=== PATIENT | female | born 1975 | race African-American/Black ===

== ENCOUNTER 2016-08-02 11:03 | Emergency (ER) | payer OTHER ==
[~2016-08-02] VITALS: Ht 165.1 cm; Wt 54.4 kg
[2016-08-02 11:06] VITALS: BP 140/80
[2016-08-02] MEDS ORDERED: Bacitracin Oint UD TOPIC ONE ×2 (11:11→11:15)
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
[2016-08-02] MEDS ORDERED: BACITRACIN ZIN1 EACH TOPIC (11:21)
[2016-08-02 11:55] VITALS: BP 140/80
== END 2016-08-02 12:00 | disposition home or self-care (01) ==
LOC: EDBD 11:03 → EMR 11:29
DX: S31.000A Unspecified open wound of lower back and pelvis without penetration into retroperitoneum, initial encounter (principal); V89.2XXA Person injured in unspecified motor-vehicle accident, traffic, initial encounter
CPT/HCPCS: 99283

== ENCOUNTER 2019-09-23 14:17 | Emergency (ER) | payer MEDICARE, OTHER ==
[~2019-09-23] VITALS: Ht 167.6 cm; Wt 74.8 kg
[~2019-09-23 14:17] MED LIST: BACITRACIN ZIN1 EACH TOPIC
--- NOTE | 2019-09-23 14:40 | NUR ---
ED Nurse Note: Patient BIBA to ED d/t left lower extremity 8/10 aching pain and swelling x 3 months. Patient states she was seen at [facility] previously but leg pain persists. Patient AxO x 4, no s/s of acute distress.
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
--- NOTE | 2019-09-23 14:50 | NUR ---
ED Nurse Note: Blood collected and sent to lab.
--- NOTE | 2019-09-23 15:00 | NUR ---
ED Nurse Note: US at bedside
[2019-09-23 15:22] LABS: HEMATOCRIT 38.5 % (37.0-47.0); HEMOGLOBIN 12.5 G/DL (12.0-16.0); MEAN CORPUSCULAR VOLUME 91 FL (80-99); PLATELET COUNT 276 K/UL (150-450); RED BLOOD COUNT 4.23 M/UL (4.20-5.40); WHITE BLOOD COUNT 6.2 K/UL (4.8-10.8)
[2019-09-23 15:31] LABS: ANION GAP 7 mmol/L (5-15); BLOOD UREA NITROGEN 13 mg/dL (7-18); CALCIUM 8.8 MG/DL (8.5-10.1); CARBON DIOXIDE 32 MMOL/L (21-32); CHLORIDE 102 MMOL/L (98-107); CREATININE 0.8 MG/DL (0.55-1.30); POTASSIUM 3.3 MMOL/L (3.5-5.1); SODIUM 141 MMOL/L (136-145)
[2019-09-23 15:37] LABS: ALANINE AMINOTRANSFERASE 16 U/L (12-78); ALBUMIN 4.3 G/DL (3.4-5.0); ALKALINE PHOSPHATASE 133 U/L (46-116); ASPARTATE AMINO TRANSFERASE 18 U/L (15-37); BILIRUBIN,TOTAL 0.4 MG/DL (0.2-1.0)
--- NOTE | 2019-09-23 16:00 | Diagnostic Imaging Report ---
Indication: Left lower extremity edema, swelling, and pain Technique: Grayscale and duplex images of the left lower extremity veins Comparison: None Findings: On the left, grayscale and duplex images demonstrate no evidence of intraluminal thrombus. Normal phasic Doppler waveforms, demonstrating normal augmentation response and no evidence of valvular insufficiency. Greater saphenous vein(s) and tibial veins are patent. Normal compressibility. There is edema of the subcutaneous fat Impression: Negative for evidence of lower extremity deep venous thrombosis on the left
[2019-09-23] MEDS ORDERED: IBUPROFEN600 M1 ORAL (16:38)
[2019-09-23 17:10] VITALS: BP 138/79
--- NOTE | 2019-09-23 17:10 | NUR ---
ER DISCHARGE NOTE: Patient is cleared to be discharged per Dr. Craig, pt is aox4, on room air, with stable vital signs. pt was given dc and prescription instructions, pt was able to verbalize understanding, ID band removed. pt is able to ambulate with steady gait. pt took all belongings.
== END 2019-09-23 17:10 | disposition home or self-care (01) ==
LOC: EDBD 14:17 → EMR 14:50
DX: R60.0 Localized edema (principal); E16.2 Hypoglycemia, unspecified
CPT/HCPCS: 36415; 80053; 85007; 85025; 85610; 85730; 93971; 99284

== ENCOUNTER → 2019-11-11 | Emergency (ER) | payer MEDICARE, OTHER ==
[~2019-11-11] MED LIST changes: +CEPHALEXIN500 MG ORAL; +IBUPROFEN600 M1 ORAL; +Morphine Sulfate 4mg/ml Inj (IV USE ONLY) ONE
--- NOTE | 2019-11-11 19:03 | NUR ---
ED Nurse Note: Recieved report from LEN Hartley. Patient sleeping in bed, no acute distress noted.
[2019-11-11 19:54] VITALS: BP 115/79
--- NOTE | 2019-11-11 19:54 | Emergency Room Report ---
History of Present Illness General Chief Complaint: Dysuria Source: Patient Present Illness HPI 44-year-old female history of homelessness, paraplegia wheelchair dependent history of dysuria times a few days chronic left leg pain, no aggravating relieving factors severity is mild, constant patient has any fevers or chills patient presents for evaluation and treatment is also reported that patient may have fallen out of her wheelchair prior to arrival, patient presents via EMS for evaluation and treatment. Allergies: Coded Allergies: No Known Allergies (Unverified , 08/02/16) COVID-19 Screening Contact w/high risk pt: No Experienced COVID-19 symptoms?: No Patient History Past Medical History: see triage record Nursing Documentation-H Hx Cardiac Problems: No Hx Hypertension: No Hx Pacemaker: No Hx Asthma: No Hx Diabetes: No Hx Cancer: No Hx Gastrointestinal Problems: No Hx Dialysis: No Hx Neurological Problems: No Hx Cerebrovascular Accident: No Hx Seizures: No Review of Systems All Other Systems: negative except mentioned in HPI Physical Exam Not tachycardic, SaO2 99%, not hypotensive Sp02 EP Interpretation: reviewed, normal General Appearance: well appearing, no apparent distress, alert Head: normocephalic, atraumatic Eyes: bilateral eye PERRL, bilateral eye EOMI ENT: uvula midline, moist mucus membranes Neck: supple, thyroid normal, supple/symm/no masses Respiratory: lungs clear, no respiratory distress, no retraction, no accessory muscle use Cardiovascular #1: normal peripheral pulses, regular rate, rhythm, no edema, no gallop, no murmur Gastrointestinal: non tender, soft, no guarding, no rebound Musculoskeletal: other - Bilateral lower extremities swollen left leg with chronic lymphedema Neurologic: alert, oriented x3 Psychiatric: mood/affect normal Skin: no rash, warm/dry Medical Decision Making Homeless Attestation I, The treating physician Dr. Cordova, have assessed and agrees that patient is medically stable for discharge to an outpatient disposition. Diagnostic Impression: Primary Impression: Chronic edema Additional Impression: Cellulitis Qualified Codes: L03.818 - Cellulitis of other sites ER Course Please note this chart was retrospectively transcribed [facility] went through downtime since 1 PM 44-year-old female presents with dysuria, patient found to have chronic left leg pain, patient with known lymph edema of the left leg, patient is paraplegic , no new changes to the left leg per patient, DVT ultrasound of the left leg was negative however there was cobblestoning posteriorly behind the knee, patient was started on ceftriaxone for UTI as well as cellulitis, will continue patient on Keflex CT abdomen and pelvis: Rectal prolapse noted chronically dislocated left hip with pseudoarticulation no acute processes per stat rad Disposition home with return precautions follow-up with PCP Urine many bacteria CT/MRI/US Diagnostic Results CT/MRI/US Diagnostic Results : Impression DVT ultrasound negative for DVT, patient with cold swelling behind posterior knee CT scan: No acute processes Disposition: HOME, SELF-CARE Condition: Stable Scripts Cephalexin* (KEFLEX*) 500 Mg Capsule 500 MG ORAL EVERY 6 HOURS, #40 CAP Prov: Ilir Cordova MD 11/11/19 Referrals: NOT CHOSEN IPA/,REFERRING (PCP) [facility] Eleuterio Reynoso [facility] Patient Instructions: Cellulitis, [id number], Urinary Tract Infection, Easy- to-Read Additional Instructions: The patient was provided with discharge instructions, notified to follow-up with a primary care doctor and or specialist in the next 24-48 hours, and to return to the ED if they have worsening of their symptoms. Please note that this report is being documented using [employer] technology. This can lead to erroneous entry secondary to incorrect interpretation by the dictating instrument. Ilir Cordova MD Nov 11, 2019 19:54
[2019-11-11 20:16] LABS: APPEARANCE,URINE CLOUDY; BILIRUBIN, URINE NEGATIVE (NEGATIVE); COLOR,URINE YELLOW; GLUCOSE, URINE (UA) NEGATIVE (NEGATIVE); KETONES,URINE 1+ (NEGATIVE); NITRITE,URINE NEGATIVE (NEGATIVE); PROTEIN,URINE 2+ (NEGATIVE)
[2019-11-11 20:17] LABS: LEUKOCYTE ESTERASE ,URINE 1+ (NEGATIVE); UROBILINOGEN,URINE 4 MG/DL (0.0-1.0)
[2019-11-11 20:27] LABS: BASOPHILS % (AUTO) 1.3 % (0.0-2.0); EOSINOPHILS % (AUTO) 15.3 % (0.0-3.0); HEMATOCRIT 35.5 % (37.0-47.0); HEMOGLOBIN 11.9 G/DL (12.0-16.0); LYMPHOCYTES % (AUTO) 16.2 % (20.0-45.0); MEAN CORPUSCULAR VOLUME 91 FL (80-99); MONOCYTES % (AUTO) 10.1 % (1.0-10.0); NEUTROPHILS % (AUTO) 57.1 % (45.0-75.0); PLATELET COUNT 303 K/UL (150-450); RED BLOOD COUNT 3.92 M/UL (4.20-5.40); RED CELL DISTRIBUTION WIDTH 12.6 % (11.6-14.8)
[2019-11-11 21:45] LABS: POTASSIUM 3.7 MMOL/L (3.5-5.1); SODIUM 143 MMOL/L (136-145)
[2019-11-11 21:46] LABS: ANION GAP 6 mmol/L (5-15); BLOOD UREA NITROGEN 14 mg/dL (7-18); CARBON DIOXIDE 33 MMOL/L (21-32); CHLORIDE 104 MMOL/L (98-107); CREATININE 0.9 MG/DL (0.55-1.30)
[2019-11-11 22:01] LABS: ALANINE AMINOTRANSFERASE 34 U/L (12-78); ALBUMIN 3.5 G/DL (3.4-5.0); ALBUMIN/GLOBULIN RATIO 0.8 (1.0-2.7); ALKALINE PHOSPHATASE 101 U/L (46-116); ASPARTATE AMINO TRANSFERASE 27 U/L (15-37); BILIRUBIN,TOTAL 0.1 MG/DL (0.2-1.0)
--- NOTE | 2019-11-12 16:45 | Diagnostic Imaging Report ---
Indication: Extreme left lower extremity edema Technique: Grayscale and duplex images of the left lower extremity veins Comparison: 09/23/2019 Findings: On the left, grayscale and duplex images demonstrate no evidence of intraluminal thrombus. Normal phasic Doppler waveforms, demonstrating normal augmentation response and no evidence of valvular insufficiency. Greater saphenous vein(s) and tibial veins are patent. Normal compressibility. The subcutaneous fat is edematous. There is no significant interim change Impression: Negative for evidence of lower extremity deep venous thrombosis on the left
--- NOTE | 2019-11-12 16:45 | Diagnostic Imaging Report ---
EXAM: CT Abdomen and Pelvis With Intravenous Contrast CLINICAL HISTORY: PAIN TECHNIQUE: Axial computed tomography images of the abdomen and pelvis with intravenous contrast. CTDI is 4.2 mGy and DLP is 224.2 mGy-cm. One or more of the following dose reduction techniques were used: automated exposure control, adjustment of the mA and/or kV according to patient size, use of iterative reconstruction technique. COMPARISON: No relevant prior studies available. FINDINGS: Lung bases: Unremarkable. ABDOMEN: Liver: Unremarkable. Gallbladder and bile ducts: Unremarkable. Pancreas: Unremarkable. Spleen: Unremarkable. Adrenals: Unremarkable. Kidneys and ureters: Unremarkable. No obstructing stones. No hydronephrosis. Stomach and bowel: Rectal prolapse. No bowel obstruction. No inflammatory changes along the GI tract. PELVIS: Appendix: No findings to suggest acute appendicitis. Bladder: Unremarkable. Reproductive: Unremarkable as visualized. ABDOMEN and PELVIS: Intraperitoneal space: Unremarkable. No free air. No significant fluid collection. Bones/joints: Chronically dislocated left hip with pseudoarticulation. Posttraumatic changes in the pelvis with diastases of the pubic symphysis and healed fracture deformities in the sacrum. Soft tissues: Unremarkable. Vasculature: Unremarkable. Lymph nodes: Unremarkable. IMPRESSION: 1. Rectal prolapse. 2. Chronically dislocated left hip with pseudoarticulation.
== END | disposition home or self-care (01) ==
LOC: EMR 14:30
DX: I89.0 Lymphedema, not elsewhere classified (principal); L03.818 Cellulitis of other sites; G82.20 Paraplegia, unspecified; N39.0 Urinary tract infection, site not specified; K62.3 Rectal prolapse; S73.005A Unspecified dislocation of left hip, initial encounter; W05.0XXA Fall from non-moving wheelchair, initial encounter; Y93.9 Activity, unspecified; Y92.009 Unspecified place in unspecified non-institutional (private) residence as the place of occurrence of the external cause
CPT/HCPCS: 36415; 74177; 80053; 81003; 81025; 83690; 84702; 85025; 85610; 85730; 86850; 86900; 86901; 87086; 93971; 96361; 96374; 96375; 96376; 99284; J0696; J2270; J2405; J7030; Q9965